=== PATIENT | male | born 1995 | race Caucasian/White ===

== ENCOUNTER 2022-05-22 11:09 | Emergency (ER) | payer BC ==
--- OUTSIDE RECORDS SUMMARY | 2022-05-22 11:20 | XMS REPORT | Continuity of Care Document ---
:1995 Author Organization [facility] t Address [address] [place] [place] [address] Care Team Providers Name Role Phone Graciela ROGEL, Renato Primary Care Physician Magdiel ROGEL, Markel Nicholson Attending Clinician Payers Payer Name Policy Type Policy Number Effective Date Expiration Date S ource Problems This patient has no known problems. Allergies, Adverse Reactions, Alerts This patient has no known allergies or adverse reactions. Social History Social Habit Start Date Stop Date Quantity Comments Source Tobacco use and 2021-05-25 2021-05-25 Smokeless tobacco [facility] exposure 00:00:00 00:00:00 non-user Hospital Alcohol intake 2021-05-25 2021-05-25 Current drinker [facility] 00:[facility]:00 00:[facility]:00 of [facility] (finding) Sex Assigned At [birth year] [facility] Smoking Status Start Date Stop Date Source Never smoked tobacco [facility] Medications This patient has no known medications. Vital Signs Vital Name Observation Time Observation Value Comments Source Systolic blood 2021-05-25 23:13:00 134 mm[Hg] [facility] pressure Diastolic blood 2021-05-25 23:13:00 68 mm[Hg] [facility] pressure Heart rate 2021-05-25 23:13:00 100 /min [facility] Respiratory rate 2021-05-25 23:13:00 18 /min [facility] Oxygen saturation in 2021-05-25 23:13:00 100 /min [facility] Arterial blood by Pulse oximetry Body temperature 2021-05-25 21:07:10 36.78 [facility] Body height 2021-05-25 21:00:[address] [facility] Body weight 2021-05-25 21:00:[address] [facility] BMI 2021-05-25 21:00:00 20.62 kg/m2 [facility] Procedures Procedure Date / Time Performing Clinician Source Performed XR CHEST 2 VW 2021-05-25 22:02:[address] [facility] URINE DRUGS OF ABUSE 2021-05-25 21:45:00 Markel Veloz [facility] SCREEN HC COMPLETE BLD COUNT 2021-05-25 21:43:00 [facility] W/AUTO DIFF COMPREHENSIVE METABOLIC 2021-05-25 21:43:00 [facility] LEV[facility] 2021-05-25 21:43:[address] [facility] TROPONIN T 2021-05-25 21:43:[address] [facility] [address] [facility] THYROID STIMULATING 2021-05-25 21:43[facility] HORMONE D-DIMER 2021-05-25 21:43:[address] [facility] ESTIMATED GFR 2021-05-25 21:43:[address] [facility] ECG ED PRELIMINARY 2021-05-25 21:20:40 Markel Veloz [facility] INTERPRETATION ECG 12-LEAD 2021-05-25 21:04:[address] [facility] Plan of Care Planned Activity Planned Date Details Comments Source Future Scheduled 2022-03-16 COVID-19 VACCINE [facility] Test 07::22 (#1) [code = COVID-19 VACCINE (#1)] Future Scheduled 2022-03-[address] [facility] ospital Test 07::22 screening (procedure) [code = 113336137] Future Scheduled 2022-03-16 INFLUENZA VACCINE Method [facility] Test 07:28:22 [code = INFLUENZA VACCINE] Encounters Start End Encounter Admission Attending Care Care Encounter Source Date/Time Date/Time Type Type Clinicians Facility Department ID 2021-05-25 2021-05-25 Emergency Magdiel, [id number] [facility] 15:13:00 18:09:[id number] [id number] Hospit a .[id number] l .8 2021-05-25 2021-05-25 Emergency MAGDIEL, [facility] [id number] [place] 00:00:00 00:00:[address] 2021-05-25 2021-05-25 Travel [id number] [facility] 00:00:00 00:00:[id number] 3.430.2.7 0.2.7.3.698 Ho spita .[id number] 084.8 l .8 Results Test Description Test Time Test Comments Results Result Comments Source ECG 12 lead 2021-05-27 20:50:33 Test Item Value Reference Range Interpretation Comme nts Ventricular rate (test code = 253) 109 Atrial rate (test code = 255) 109 MN interval (test code = 266) 146 QRSD interval (test code = 260) 90 QT interval (test code = 264) 320 QTC interval (test code = 265) 430 P axis 1 (test code = 267) 81 QRS axis 1 (test code = 268) 28 T wave axis (test code = 270) 83 EKG impression (test code = 273) Sinus tachycardia-Biatrial enlargement-Abnormal ECG-- [facility]
[2022-05-22 11:34] LABS: Absolute Lymphocytes (CBC) 1.6 K/uL (0.7-4.9); Hematocrit 46.2 % (39.6-49.0); Lymphocytes % 25.5 % (15.3-44.8); MCV 93.4 fL (80-100); MPV 8.7 fL (7.6-11.3); RBC Red Blood Cell Count 4.94 M/uL (4.33-5.43)
[2022-05-22] MEDS ORDERED: MAGNESIUM SULFATE 1 gm IVPB 1 GM/100 ML BAG IV ONE (11:36)
[2022-05-22 11:38] LABS: Protime INR 1.08
[2022-05-22 11:56] LABS: ALT/SGPT 32 U/L (16-61); AST/SGOT 20 U/L (15-37); Albumin 4.8 g/dL (3.4-5.0); Alkaline Phosphatase 66 U/L (45-117); BUN Blood Urea Nitrogen 16 mg/dL (7-18); Bicarbonate 30 mmol/L (21-32); Bilirubin Direct 0.2 mg/dL (0-0.2); Bilirubin Total 0.7 mg/dL (0.2-1.0); Glomerular Filtration Rate 101 ml/min (=/>90); Glucose Level 113 mg/dL (74-106); Magnesium 2.2 mg/dL (1.6-2.4); NT PRO-BNP 35 pg/mL (<125); Potassium 3.7 mmol/L (3.5-5.1); Sodium Level 137 mmol/L (136-145)
[2022-05-22 11:57] LABS: Troponin High Sensitivity < 3.0 pg/mL (<58.9)
--- NOTE | 2022-05-22 12:55 | RAD REPORT ---
EXAM DESCRIPTION: RAD - Chest Single View - 05/22/2022 12:38 pm CLINICAL HISTORY: PALPITATIONS COMPARISON: No comparisons FINDINGS: Lines: None. Lungs: No evidence of edema or pneumonia. Pleural: No significant pleural effusions or pneumothorax. Cardiac: The heart size is within normal limits. Mediastinum: Within normal limits. Bones: No acute fractures. Other: None IMPRESSION: No acute cardiopulmonary disease.
--- NOTE | 2022-05-22 13:56 | EDPHYS ---
Physician Documentation [facility] Name: John Matson Age: 27 yrs Sex: Male : 1995 Arrival Date: 05/22/2022 Time: 11:12 Bed 4 Private MD: ED Physician Rod Mason HPI: 05/22 11:18 This 27 yrs old Male presents to ER via Ambulatory with complaints of Palpitations, jmm Irregular Pulse - hx of svt. 11:18 The patient presents with a history of heart racing. Onset: The symptoms/episode jmm began/occurred acutely, 2 day(s) ago. Duration: The patient or guardian reports a single episode. This is a 27 year old male with a history of svt that presents to the ED with complaints of palpitations beginning 2 days ago. Patient denies chest pain or shortness of breath. Denies leg swelling, hemptysis, hx of dvt or pe. . Historical: - Allergies: 11:24 No Known Allergies; aa5 - Home Meds: 11:24 None [Active]; aa5 - PMHx: 11:24 SVT; aa5 - PSHx: 11:24 None; aa5 - Immunization history:: Adult Immunizations unknown. - Social history:: Smoking status: Patient denies any tobacco usage or history of. ROS: 11:18 Constitutional: Negative for fever, chills, and weight loss. jmm 11:18 Cardiovascular: Positive for palpitations. 11:18 All other systems are negative. Exam: 11:18 Constitutional: This is a well developed, well nourished patient who is awake, alert, jmm and in no acute distress. Head/Face: atraumatic. Eyes: EOMI, no conjunctival erythema appreciated ENT: Moist Mucus Membranes Neck: Trachea midline, Supple Chest/axilla: Normal chest wall appearance and motion. Cardiovascular: Regular rate and rhythm. No edema appreciated Respiratory: Normal respirations, no respiratory distress appreciated Abdomen/GI: Non distended Back: Normal ROM Skin: General appearance color normal MS/ Extremity: Moves all extremities, no obvious deformities appreciated, no edema noted to the lower extremities Neuro: Awake and alert Psych: Behavior is normal, Mood is normal, Patient is cooperative and pleasant Vital Signs: 11:15 BP 132 / 85; Pulse 113; Resp 18 S; Temp 98.2(TE); Pulse Ox 100% on R/A; Weight 79.38 kg aa5 (R); Height 6 ft. 3 in. (190.50 cm) (R); Pain 0/10; 11:30 BP 123 / 78; Pulse 84; Resp 15; Pulse Ox 99% on R/A; vg1 12:30 BP 123 / 85; Pulse 72; Resp 10 S; Pulse Ox 100% on R/A; Pain 0/10; kc6 13:41 BP 122 / 76; Pulse 68; Resp 18 S; Pulse Ox 100% on R/A; Pain 0/10; kc6 11:15 Body Mass Index 21.87 (79.38 kg, 190.50 cm) aa5 MDM: 11:18 Patient medically screened. [facility] 13:52 Data reviewed: vital signs, nurses notes. Counseling: I had a detailed discussion with [facility] the patient and/or guardian regarding: the historical points, exam findings, and any diagnostic results supporting the discharge/admit diagnosis, the need for outpatient follow up, to return to the emergency department if symptoms worsen or persist or if there are any questions or concerns that arise at home. 13:52 I considered the following discharge prescriptions or medication management in the [facility] emergency department Medications were administered in the Emergency Department. See MAR. ED course: Patient is alert and non toxic in appearance in the ED. No signs of resp distress. EKG did not reveal svt. Patient encouraged to stay hydrated and follow up with cardiology for further evaluation. Patient understood and agrees with the plan of care. . 05/22 11:23 Order name: Basic Metabolic Panel; Complete Time: 11: [facility] 05/22 11:23 Order name: CBC with Diff; Complete Time: 11: [facility] 05/22 11:23 Order name: LFT's; Complete Time: 11:59 [facility] 05/22 11:23 Order name: Magnesium; Complete Time: 11:59 [facility] 05/22 11:23 Order name: NT PRO-BNP; Complete Time: 11:59 [facility] 05/22 11:23 Order name: PT-INR; Complete Time: 11:52 [facility] 05/22 11:23 Order name: Troponin HS; Complete Time: 11:59 [facility] 05/22 11:23 Order name: XRAY Chest (1 view); Complete Time: 13:03 [facility] 05/22 11:23 Order name: EKG; Complete Time: [facility] 05/22 11: Order name: Cardiac monitoring; Complete Time: [facility] 05/22 11:23 Order name: EKG - Nurse/Tech; Complete Time: [facility] 05/22 11:23 Order name: IV Saline Lock; Complete Time: [facility] 05/22 11: Order name: Labs collected and sent; Complete Time: [facility] 05/22 11: Order name: O2 Per Protocol; Complete Time: [facility] 05/22 11: Order name: O2 Sat Monitoring; Complete Time: [facility] EC:48 Rate is 91 beats/min. Rhythm is regular. QRS Donaldson is Normal. NE interval is normal. QRS jmm interval is normal. QT interval is normal. No Q waves. T waves are Normal. No ST changes noted. Reviewed by me. Administered Medications: 11:44 Drug: Magnesium Sulfate 1 grams Route: IVPB; Infused Over: 1 hrs; Site: right kc6 antecubital; 14:32 Follow up: Response: No adverse reaction; IV Status: Completed infusion [facility] Disposition: 14:38 Co-signature as Attending Physician, Rod Mason MD I reviewed the patient's care rt provided by the Advanced Practice Provider and agree with the diagnosis and treatment plan. Disposition Summary: 05/22/22 13:56 Discharge Ordered Location: Home [facility] Condition: Stable jmm Diagnosis - Palpitations jmm Followup: jm - With: Gennaro Miramontes MD - When: 2 - 3 days - Reason: Recheck today's complaints, Continuance of care, Re-evaluation by your physician Discharge Instructions: - Discharge Summary Sheet jmm - Palpitations jmm Forms: - Medication Reconciliation Form jmm - Thank You Letter jmm - Antibiotic Education jmm - Prescription Opioid Use jmm Signatures: Dispatcher [employer] David Lerner PA PA jmm Calderon, Audri, RN RN aa5 Jackeline Stewart RN RN kc6 Rod Mason MD MD rt
--- NOTE | 2022-05-22 13:56 | ER ---
Nurse's Notes [facility] [place] Name: John Matson Age: 27 yrs Sex: Male : 1995 Arrival Date: 05/22/2022 Time: 11:12 Bed 4 Private MD: Diagnosis: Palpitations Presentation: 05/22 11:15 Chief complaint: Patient states: palpitations x 2 days ago, reports hx of SVT. aa5 11:15 Coronavirus screen: At this time, the client does not indicate any symptoms associated aa5 with coronavirus-19. Ebola Screen: Patient denies travel to an Ebola-affected area in the 21 days before illness onset. Initial Sepsis Screen: Does the patient meet any 2 criteria? No. Patient's initial sepsis screen is negative. Does the patient have a suspected source of infection? No. Patient's initial sepsis screen is negative. Risk Assessment: Do you want to hurt yourself or someone else? Patient reports no desire to harm self or others. Onset of symptoms was May 2022. 11:15 Acuity: PAU 3 aa5 11:15 Method Of Arrival: Ambulatory aa5 Historical: - Allergies: 11:24 No Known Allergies; aa5 - Home Meds: 11:24 None [Active]; aa5 - PMHx: 11:24 SVT; aa5 - PSHx: 11:24 None; aa5 - Immunization history:: Adult Immunizations unknown. - Social history:: Smoking status: Patient denies any tobacco usage or history of. Screenin:29 [facility] ED Fall Risk Assessment (Adult) History of falling in the last 3 months, kc6 including since admission No falls in past 3 months (0 pts) Confusion or Disorientation No (0 pts) Intoxicated or Sedated No (0 pts) Impaired Gait No (0 pts) Mobility Assist Device Used No (0 pt) Altered Elimination No (0 pt) Score/Fall Risk Level 0 - 2 = Low Risk Oriented to surroundings, Maintained a safe environment, Educated pt \T\ family on fall prevention, incl call for assistance when getting out of bed, Assessed \T\ reinforced patient's understanding of fall precautions, Hourly rounding (assess needs \T\ fall precautionary measures) done. Abuse screen: Denies threats or abuse. Denies injuries from another. Nutritional screening: No deficits noted. Tuberculosis screening: No symptoms or risk factors identified. Assessment: 11:28 General: Appears in no apparent distress. comfortable, Behavior is calm, cooperative, kc6 appropriate for age. Pain: Denies pain. Neuro: Reddy Agitation-Sedation Scale (RASS): 0 - Alert and Calm Level of Consciousness is awake, alert, obeys commands, Oriented to person, place, time, situation, Appropriate for age. Cardiovascular: Capillary refill < 3 seconds. Cardiovascular: Denies chest pain, shortness of breath, Parent/caregiver reports patient has had palpitations. Respiratory: Airway is patent Trachea midline Respiratory effort is even, unlabored, Respiratory pattern is regular, symmetrical. GI: No signs and/or symptoms were reported involving the gastrointestinal system. : No signs and/or symptoms were reported regarding the genitourinary system. EENT: No signs and/or symptoms were reported regarding the EENT system. Derm: No signs and/or symptoms reported regarding the dermatologic system. Skin is intact, Skin is pink, warm \T\ dry. Musculoskeletal: No signs and/or symptoms reported regarding the musculoskeletal system. Circulation, motion, and sensation intact. Capillary refill < 3 seconds, Range of motion: intact in all extremities. 12:28 Reassessment: Patient appears in no apparent distress at this time. No changes from kc6 previously documented assessment. Patient and/or family updated on plan of care and expected duration. Pain level reassessed. Patient is alert, oriented x 3, equal unlabored respirations, skin warm/dry/pink. 13:28 Reassessment: Patient appears in no apparent distress at this time. No changes from kc6 previously documented assessment. Patient and/or family updated on plan of care and expected duration. Pain level reassessed. Patient is alert, oriented x 3, equal unlabored respirations, skin warm/dry/pink. Vital Signs: 11:15 BP 132 / 85; Pulse 113; Resp 18 S; Temp 98.2(TE); Pulse Ox 100% on R/A; Weight 79.38 kg aa5 (R); Height 6 ft. 3 in. (190.50 cm) (R); Pain 0/10; 11:30 BP 123 / 78; Pulse 84; Resp 15; Pulse Ox 99% on R/A; vg1 12:30 BP 123 / 85; Pulse 72; Resp 10 S; Pulse Ox 100% on R/A; Pain 0/10; kc6 13:41 BP 122 / 76; Pulse 68; Resp 18 S; Pulse Ox 100% on R/A; Pain 0/10; kc6 11:15 Body Mass Index 21.87 (79.38 kg, 190.50 cm) aa5 ED Course: 11:12 Patient arrived in ED. as 11:15 Arm band placed on Patient placed in an exam room, on a stretcher. aa5 11:16 David Yu PA is PHCP. jmm 11:16 Rod Mason MD is Attending Physician. jmm 11:22 Jackeline Stewart, DOMINIQUE is Primary Nurse. kc6 11:23 Inserted saline lock: 20 gauge in right antecubital area, using aseptic technique. ll1 Blood collected. 11:24 Triage completed. aa5 11:28 Basic Metabolic Panel Sent. kc6 11:28 CBC with Diff Sent. kc6 11:28 LFT's Sent. kc6 11:28 Magnesium Sent. kc6 11:28 NT PRO-BNP Sent. kc6 11:28 PT-INR Sent. kc6 11:28 Troponin HS Sent. kc6 11:29 Patient has correct armband on for positive identification. Placed in gown. Bed in low kc6 position. Call light in reach. Side rails up X2. Adult w/ patient. 12:39 XRAY Chest (1 view) In Process Unspecified. EDMS 13:55 Gennaro Miramontes MD is Referral Physician. jmm 14:22 No provider procedures requiring assistance completed. IV discontinued, intact, kc6 bleeding controlled, No redness/swelling at site. Pressure dressing applied. Administered Medications: 11:44 Drug: Magnesium Sulfate 1 grams Route: IVPB; Infused Over: 1 hrs; Site: right kc6 antecubital; 14:32 Follow up: Response: No adverse reaction; IV Status: Completed infusion kc6 Medication: 14:23 VIS not applicable for this client. kc6 Outcome: 13:56 Discharge ordered by . jm 14:22 Discharged to home via ambulance, with significant other. kc6 14:22 Condition: stable 14:22 Discharge instructions given to patient, Instructed on discharge instructions, follow up and referral plans. Demonstrated understanding of instructions, follow-up care. 14:34 Patient left the ED. kc6 Signatures: Dispatcher [employer] David Lerner PA PA jmm Martinez, Amelia as Calderon, Audri, RN RN aa5 Jazzmine Schulz, RN RN vg1 Tomi Beltran RN RN ll1 Jackeline Stewart, RN RN kc6
[2022-05-22 14:58] VITALS: TEMP 98.2
[2022-05-22 15:26] VITALS: BP 122/76; O2SAT 100
--- NOTE | 2022-05-24 12:41 | EKG ---
Test Date: 2022-05-22 Test Time: 11:23:28 Shoulder Joiner: IRAJ MEASUREMENT RESULTS: Intervals: Rate: 91 WI: 150 QRSD: 88 QT: 340 QTc: 418 Harvey: P: 76 WI: 150 QRS: -26 T: 66 INTERPRETIVE STATEMENTS: Normal sinus rhythm Normal ECG No previous ECG available for comparison Electronically Signed On 05-24-22 12:37:12 PILL MAKER by Gennaro Miramontes
== END 2022-05-22 14:34 | disposition home or self-care (01) ==
LOC: ER 11:09
DX: R00.2 Palpitations (principal); I47.1 Supraventricular tachycardia
CPT/HCPCS: 96365; 93005; 85025; 80048; 36415; 83735; 85610; 80076; 84484; 83880; 71045; 99284; 96366; J3475